=== PATIENT | female | born 1955 | race Caucasian/White ===

== ENCOUNTER 2017-01-20 13:58 | Outpatient (CLI) | payer OTHER ==
--- NOTE | 2017-01-20 15:57 | CT ---
CT OF THE HEAD WITHOUT CONTRAST: DATE: 01/20/17. COMPARISON: None. HISTORY: Pain to the left occipital scalp for 8 days, unsteady gait. TECHNIQUE: Serial axial CT imaging at 5 mm intervals from vertex through the skull base without contrast. FINDINGS: The imaged paranasal sinuses and mastoid air cells are well aerated. There is no displaced calvaria l fracture. There is atherosclerotic calcification of the cavernous carotid arteries and distal mariana tebral arteries. There is no intracranial hemorrhage, midline shift, or mass effect. No acute find ings. IMPRESSION: Unremarkable noncontrast-enhanced head CT. POS: [facility] [place]
== END 2017-01-20 13:59 | disposition home or self-care (01) ==
LOC: BURCT 13:58
PROVIDERS: ATTEND Family Medicine
DX: R51 Headache (principal)
CPT/HCPCS: 70450

== ENCOUNTER 2017-03-16 09:16 | Outpatient (CLI) | payer OTHER ==
--- NOTE | 2017-03-16 18:43 | RAD ---
LUMBAR SPINE TWO VIEWS 03/16/17 Flexion and extension lateral views were obtained. Review of a 03/09 MRI report was done. No fracture, dislocation, or abnormal movement was seen in flexion versus extension. There is some m ild disc space narrowing at L5-S1 and minimal narrowing at L1-L2 and L2-L3. Small anterior osteophyt es are seen. The abdominal aorta is calcified. IMPRESSION: Mild degenerative changes as noted. No abnormal movement between flexion and extension. POS: HOME
== END 2017-03-16 09:17 | disposition home or self-care (01) ==
LOC: BURRAD 09:16
PROVIDERS: ATTEND Neurological Surgery
DX: M47.26 Other spondylosis with radiculopathy, lumbar region (principal)
CPT/HCPCS: 72100

== ENCOUNTER 2017-05-03 11:16 | Outpatient (CLI) | payer OTHER ==
--- NOTE | 2017-05-03 20:28 | RAD ---
CERVICAL SPINE TWO VIEWS 05/03/17 An anterior cervical fusion is seen at the C3-C4 level and separately at the C5 through C7 levels. Th e C5 through C7 levels are completely fused. Synthetic discs are see in the C3-C4 and C4-C5 disc spac es and are in appropriate position. The alignment of the cervical spine is as expected. There is no s oft tissue swelling. The C1 to dens distance is normal. No fractures are seen. Some carotid calcifica tions are noted on the left. IMPRESSION: Status post anterior cervical fusion as described with no acute findings. POS: HOME
== END 2017-05-03 11:17 | disposition home or self-care (01) ==
LOC: BURRAD 11:16
PROVIDERS: ATTEND Neurological Surgery
DX: M54.12 Radiculopathy, cervical region (principal); Z98.1 Arthrodesis status
CPT/HCPCS: 72040

== ENCOUNTER 2020-08-08 11:50 | Outpatient (CLI) | payer MEDICARE ==
--- NOTE | 2020-08-08 14:14 | RAD ---
Radiograph left humerus 2 views: 08/08/2020 HISTORY: 65-year-old female with left arm pain FINDINGS: Osteopenia. No discrete focal destructive osseous lesion or periostitis identified in the humerus. No fracture. There is a small ill-defined permeative osteolytic lesion in the scapula, slightly proximal to the in ferior glenoid. IMPRESSION: 1. Small osteolytic lesion of scapula close to the glenohumeral joint. This raises the possibility of an aggressive process such as metastasis or multiple myeloma. 2. No fracture. 3. Osteopenia of the humerus. There is a small possibility that this could represent multiple myeloma also. 4. Recommend further evaluation with CT of left shoulder and arm to include the scapula and humerus. 5. Nuclear Medicine whole body bone scan would also be useful to search for other lesions elsewhere i n the skeleton
--- NOTE | 2020-08-08 15:16 | RAD ---
Cervical spine 3 views: 08/08/2020 COMPARISON: 05/03/2017 HISTORY: Cervical spine fusion FINDINGS: Anterior discectomy and fusion hardware is present at C3-4. There is also anterior discecto my and fusion hardware at C5-6/C6-7. No prevertebral soft tissue swelling. No anterolisthesis or retrolisthesis. Open-mouth odontoid view demonstrates a normal-appearing dens and C1-2 articulation. There is multilevel mid cervical spine bilateral facet and uncovertebral osteophyte formation. IMPRESSION: Postoperative and degenerative change as above.
== END 2020-08-08 11:51 | disposition home or self-care (01) ==
LOC: BURRAD 11:50
PROVIDERS: ATTEND Family Medicine
DX: M79.622 Pain in left upper arm (principal); M54.2 Cervicalgia; M47.812 Spondylosis without myelopathy or radiculopathy, cervical region; M89.522 Osteolysis, left upper arm; M85.822 Other specified disorders of bone density and structure, left upper arm; Z98.1 Arthrodesis status
CPT/HCPCS: 72040

== ENCOUNTER 2020-08-12 08:12 | Outpatient (CLI) | payer MEDICARE ==
--- NOTE | 2020-08-12 17:16 | CT ---
CT OF THE LEFT SHOULDER 08/12/[address] of the left shoulder was performed in response to an abnormality seen on a recent plain eyal m. There is a small area of permeative destruction along the inferior portion of the glenoid fossa. It i s not dramatic, but is nonetheless present. I do not see any lesions in the remainder of the scapula or in the humerus. There is a small calcification outside of the humerus probably related to calcifi c tendonitis, probably in the infraspinatus tendon. The major finding on the study is multiple small pulmonary nodules present in the lingular portions o f the left upper lobe and particularly in the left lower lobe. These generally range in size from abo ut 5 to 12 mm in width. Some are within the parenchyma and a few are more pleural based. On a scan ju st above the level of the aortic arch, I wound wonder about some pathology here, but this area is cut off at the limits of the field of view. IMPRESSION: Small permeative lesion of the inferior portion of the glenoid fossa of the scapula, taken along with quite a few small pulmonary nodules in the left lung, yields a probability that the bony finding may be due to metastatic disease. A workup for such, such as a CT of the chest, abdomen and pelvis (with contrast if possible) may be fruitful. A bone scan could be useful to search for any other bony lesi ons. Findings discussed with Dr. Mckeon at 11:07 on 08/12/20. POS: HOME
== END 2020-08-12 08:13 | disposition home or self-care (01) ==
LOC: BURCT 08:12
PROVIDERS: ATTEND Family Medicine
DX: M89.512 Osteolysis, left shoulder (principal); R91.8 Other nonspecific abnormal finding of lung field

== ENCOUNTER 2020-08-14 08:49 | Outpatient (CLI) | payer MEDICARE ==
--- NOTE | 2020-08-14 11:47 | CT ---
CT CHEST AND ABDOMEN AND PELVIS: DATE: 08/14/2020. FINDINGS: Spiral CT of the chest, abdomen, and pelvis was done with IV contrast for evaluation of a recent CT o f the shoulder that showed an osteolytic lesion in the scapula as well as several very small pulmonar y nodules in the visible sections of the left lung. CT OF THE THORAX: This shows that there are indeed multiple bilateral pulmonary nodules of varying sizes. Nodules are seen in all lobes except perhaps the right middle lobe. Some of the larger masses include a 2.9 cm m ass at the level of the aortic arch, a 2.2 cm mass near the origin of the main pulmonary artery, and a 2.9 cm mass in the right lower lobe. An area of scarring is seen in the right lung apex. There ar e at least 2 nodes anterior to the tj measuring about 1.5 cm in size. Some calcification is seen in the aorta and some of the coronary arteries. There is no sign of aneurysm or dissection. No acu te infiltrates are seen. There are no effusions. No gross areas of bony destruction were seen in th e thorax, though subtle ones might be easy to miss. CT OF THE ABDOMEN AND PELVIS: The liver, spleen, pancreas, gallbladder, adrenal glands, and abdominal aorta showed no acute finding s. No masses were seen in any organs. There was no adenopathy of concern in the abdomen. No free a ir or free fluid was seen. There is no evidence of bowel obstruction. A moderate amount of fecal ma terial was seen in the colon. The CT of the pelvis showed no pelvic masses, fluid collections, or ad enopathy. The bony pelvis and lumbar spine appeared intact. There was a tiny sclerotic area in the L1 vertebral body that may or may not be significant. The urinary bladder is distended. IMPRESSION: 1. Multiple pulmonary masses of varying sizes, all lobes, except right middle lobe. Largest ones ar e just under 3 cm in size. Metastatic disease is suspected. 2. No findings in the abdomen to indicate a source or spread in this area. 3. Tiny subcentimeter sclerotic area in the L1 vertebral body which may or may not be significant. CODE T POS: HOME
== END 2020-08-14 08:50 | disposition home or self-care (01) ==
LOC: BURCT 08:49
PROVIDERS: ATTEND Family Medicine
DX: Z01.818 Encounter for other preprocedural examination (principal); R91.8 Other nonspecific abnormal finding of lung field; M89.50 Osteolysis, unspecified site
CPT/HCPCS: 36415; 71260; 74177; 82565

== ENCOUNTER 2020-09-15 09:36 | Outpatient (CLI) | payer MEDICARE ==
[~2020-09-15 09:36] MED LIST: Iopamidol 370 76% 100 ML VIAL ONE
[2020-09-15 10:30] LABS: Hemoglobin 13.9 g/dL (12.0-16.0); Mean Corpuscular HGB CONC 33.7 g/dL (32.0-36.0); Mean Corpuscular Hemoglobin 34.1 pg (27.0-31.0); Platelet Count 368 thou/uL (130-400); RBC Distribution Width 12.1 % (11.5-14.5); Red Blood Cell (RBC) Count 4.06 mill/uL (4.20-5.40); White Blood Cell (WBC) Count 7.6 thou/uL (4.8-10.8)
[2020-09-15 10:34] LABS: Calc. Creatinine Clearance 0 mL/min (70-130)
[2020-09-15 11:35] LABS: Thyroid Stimulating Hormone 0.525 uIU/mL (0.35-4.94)
[2020-09-15 17:36] LABS: ALT (SGPT) 10 U/L (8-55); AST (SGOT) 11 U/L (5-34); Alkaline Phosphatase 66 U/L (40-110); Anion Gap 16 mmol/L (10-20); BUN (Urea Nitrogen) 8 mg/dL (9.8-20.1); Bilirubin, Direct 0.2 mg/dL (0.1-0.3); Bilirubin, Total 0.4 mg/dL (0.2-1.2); Calcium 9.7 mg/dL (7.8-10.44); Carbon Dioxide 24 mmol/L (23-31); Chloride 98 mmol/L (98-107); Globulin 3.1 g/dL (2.4-3.5); Glucose 102 mg/dL (80-115); LDH 138 U/L (125-220); Phosphorus 3.9 mg/dL (2.3-4.7); Potassium 4.7 mmol/L (3.5-5.1); Protein, Total 7.1 g/dL (5.8-8.1); Sodium 133 mmol/L (136-145); Uric Acid 3.4 mg/dL (2.6-6.0)
[2020-09-15 18:00] LABS: T4 6.6 ug/dL (4.87-11.72)
== END 2020-09-15 09:37 | disposition home or self-care (01) ==
LOC: BURCT 09:36
PROVIDERS: ATTEND Internal Medicine Hematology & Oncology
DX: C79.51 Secondary malignant neoplasm of bone (principal); C34.81 Malignant neoplasm of overlapping sites of right bronchus and lung; Z79.899 Other long term (current) drug therapy
CPT/HCPCS: 36415; 70470; 80053; 80076; 82248; 83615; 84100; 84436; 84443; 84550; 85027; Q9967

== ENCOUNTER 2022-04-02 09:59 | Outpatient (CLI) | payer MEDICARE ==
[2022-04-02] MEDS ORDERED: Iopamidol 370 76% 100 ML VIAL FS ONE (10:00)
== END 2022-04-02 10:00 | disposition home or self-care (01) ==
LOC: BURCT 09:59
PROVIDERS: ATTEND Internal Medicine Cardiovascular Disease
DX: I65.23 Occlusion and stenosis of bilateral carotid arteries (principal); I65.01 Occlusion and stenosis of right vertebral artery
CPT/HCPCS: 70498; Q9967

== ENCOUNTER 2022-07-14 08:54 | Outpatient (CLI) | payer MEDICARE ==
[2022-07-14] MEDS ORDERED: Iopamidol 370 76% 100 ML VIAL ONE (09:15)
== END 2022-07-14 08:55 | disposition home or self-care (01) ==
LOC: BURCT 08:54
PROVIDERS: ATTEND Internal Medicine Hematology & Oncology
DX: C34.81 Malignant neoplasm of overlapping sites of right bronchus and lung (principal); C79.51 Secondary malignant neoplasm of bone; R91.8 Other nonspecific abnormal finding of lung field
CPT/HCPCS: 71260; 74177; Q9967

== ENCOUNTER 2022-12-02 08:47 | Outpatient (CLI) | payer MEDICARE ==
[2022-12-02] MEDS ORDERED: Iopamidol 370 76% 100 ML VIAL ONE (13:36)
== END 2022-12-02 08:48 | disposition home or self-care (01) ==
LOC: BURCT 08:47
PROVIDERS: ATTEND Internal Medicine Hematology & Oncology
DX: C34.81 Malignant neoplasm of overlapping sites of right bronchus and lung (principal); C79.51 Secondary malignant neoplasm of bone
CPT/HCPCS: 71260; 74177; Q9967